=== PATIENT | female | born 1940 | race Caucasian/White ===

== ENCOUNTER 2021-06-15 13:21 | Emergency (ER) | payer OTHER ==
[~2021-06-15] VITALS: Ht 157.5 cm; Wt 63.5 kg
[2021-06-15] MEDS ORDERED: AVAPRO150 MG PO (14:13)
[2021-06-15] MEDS ORDERED: PLAVIX75 MG (14:13)
[2021-06-15] MEDS ORDERED: AMITIZA8 MCG (14:13)
[2021-06-15] MEDS ORDERED: PROTONIX40 M1 PO (14:14)
[2021-06-15] MEDS ORDERED: METFORMIN HCL500 M4 PO (14:14)
[2021-06-15] MEDS ORDERED: PEPCID AC20 MG (14:14)
[2021-06-15] MEDS ORDERED: CRESTOR10 MG PO (14:15)
[2021-06-15] MEDS ORDERED: LEVSIN/SL0.125 MG SL (21:48)
[2021-06-15] MEDS ORDERED: METRONIDAZOLE500 MG PO (21:48)
[2021-06-15] MEDS ORDERED: PEPCID AC20 MG PO (21:48)
[2021-06-15] MEDS ORDERED: CIPRO500 MG PO (21:48)
== END 2021-06-15 21:54 | disposition home or self-care (01) ==
LOC: ER 13:21
DX: R10.9 Unspecified abdominal pain (principal); T40.2X5A Adverse effect of other opioids, initial encounter; T36.0X5A Adverse effect of penicillins, initial encounter; T39.015A Adverse effect of aspirin, initial encounter; K52.9 Noninfective gastroenteritis and colitis, unspecified